=== PATIENT | female | born 1970 | race Caucasian/White ===

== ENCOUNTER 2016-09-30 07:24 | Emergency (ER) | payer MEDICAID ==
[2016-09-30] MEDS ORDERED: ONDANSETRON 4 MG/2 ML VIAL IVP STA (07:49)
[2016-09-30] MEDS ORDERED: SODIUM CHLORIDE 0.9% 1,000 ML IV ONE (07:49)
[2016-09-30] MEDS ORDERED: HYDROmorphone 1 MG/ML SYRINGE IVP STA (07:49)
[2016-09-30] MEDS ORDERED: HYDROmorphone 1 MG/ML SYRINGE ONE (07:51)
[2016-09-30] MEDS ORDERED: ONDANSETRON 4 MG/2 ML VIAL ONE (07:51)
[2016-09-30] MEDS ORDERED: KETOROLAC 60 MG/2 ML VIAL IVP STA (08:19)
[2016-09-30] MEDS ORDERED: KETOROLAC 30 MG/ML VIAL ONE (08:39)
[2016-09-30] MEDS ORDERED: cefTRIAXone 1 GM in SODIUM CHLORIDE 0.9% MINIBAG 100 ML IV STA (09:07)
[2016-09-30] MEDS ORDERED: cefTRIAXone 1 GM VIAL ONE (09:10)
[2016-09-30] MEDS ORDERED: metroNIDAZOLE 500 MG/100 ML 100 ML IV ONE (09:58)
[2016-09-30] MEDS ORDERED: metroNIDAZOLE 500 MG/100 ML 100 ML ONE (10:19)
[2016-09-30] MEDS ORDERED: ACETAMINOPHEN 1,000 MG/100 ML 100 ML IV STA (11:15)
[2016-09-30] MEDS ORDERED: ACETAMINOPHEN 1,000 MG/100 ML 100 ML IV ONE (11:22)
== END 2016-09-30 12:01 | disposition home or self-care (01) ==
DX: K57.32 Diverticulitis of large intestine without perforation or abscess without bleeding (principal); K21.9 Gastro-esophageal reflux disease without esophagitis; Z87.442 Personal history of urinary calculi
CPT/HCPCS: 36415; 74176; 80053; 81001; 83690; 85025; 96374; 96375; 99283; 99284; J0131; J1170

== ENCOUNTER 2018-01-08 12:08 | Outpatient (CLI) | payer MEDICAID ==
--- NOTE | 2018-01-08 12:35 | XRAY Report ---
Procedure Date: 01/08/2018 Accession Number: [id number] / [id number] Procedure: XRN - Cervical Spine 2 View CPT Code: FULL RESULT: EXAM: Cervical Spine 2 View DATE: 01/08/2018 12:26 PM CLINICAL HISTORY: cervicalgia COMPARISON: None. TECHNIQUE: 3 views. FINDINGS: Alignment: Normal. No spondylolisthesis or scoliosis. Bones: The cervical vertebral bodies and posterior elements are well visualized from the skull base through C7-T1. No fractures or bone lesions. Disks: Normal. Disk heights are maintained. Facets: No degenerative disease. Soft Tissues: Normal. No prevertebral soft tissue swelling. The visualized lung apices are clear. IMPRESSION: Normal cervical spine radiography. [facility]
== END 2018-01-08 12:09 | disposition home or self-care (01) ==
LOC: DI.N 12:08
PROVIDERS: ATTEND Nurse Practitioner
DX: M54.2 Cervicalgia (principal); N62 Hypertrophy of breast
CPT/HCPCS: 72040

== ENCOUNTER 2018-02-02 21:32 | Emergency (ER) | payer MEDICAID ==
[2018-02-02 22:21] LABS: BILIRUBIN,URINE NEGATIVE (NEGATIVE); GLUCOSE, URINE (UA) NEGATIVE (NEGATIVE); KETONES,URINE (UA) NEGATIVE (NEGATIVE); LEUKOCYTE ESTERASE, URINE TRACE (NEGATIVE); NITRITE,URINE NEGATIVE (NEGATIVE); OCCULT BLOOD,URINE TRACE-INTA (NEGATIVE); PROTEIN,URINE 100 mg/dL (NEGATIVE); UROBILINOGEN,URINE 0.2 (NORMAL) E.U./dL (NORMAL)
[2018-02-02 22:21] LABS: BASOPHILS % (AUTO) 0.7 %; EOSINOPHILS # (AUTO) 0.1 10^3/uL (0.0-0.7); EOSINOPHILS % (AUTO) 2.1 %; HGB - HEMOGLOBIN 13.7 g/dL (12.0-16.0); LYMPHOCYTES # (AUTO) 2.1 10^3/uL (1.5-3.5); LYMPHOCYTES % (AUTO) 31.6 %; MEAN CORPUSCULAR HGB CONC 35.1 g/dL (32.0-36.0); MEAN CORPUSCULAR VOLUME 93.9 fL (81.0-99.0); MONOCYTES # (AUTO) 0.4 10^3/uL (0.0-1.0); MONOCYTES % (AUTO) 6.8 %; NEUTROPHILS # (AUTO) 3.9 10^3/uL (1.5-6.6); NEUTROPHILS % (AUTO) 58.8 %; PLT - PLATELET COUNT 179 10^3/uL (130-450); RED BLOOD COUNT 4.15 10^6/uL (4.20-5.40); RED CELL DISTRIBUTION WIDTH 13.9 % (12.0-15.0); WHITE BLOOD COUNT 6.6 x10^3/uL (4.8-10.8)
[2018-02-02 22:22] LABS: CLARITY,URINE CLEAR (CLEAR)
[2018-02-02 22:32] LABS: BACTERIA,URINE Moderate /HPF (None Seen); RBC,URINE 0-5 /HPF (0-5); SQUAMOUS EPITHELIAL CELL,UR MANY Squamous (<= Few)
[2018-02-02 22:33] LABS: MUCUS,URINE Moderate Strands
[2018-02-02 22:37] LABS: ALBUMIN 4.8 g/dL (3.2-5.5); ALBUMIN/GLOBULIN RATIO 1.7 (1.0-2.2); BILIRUBIN,TOTAL 1.6 mg/dL (0.2-1.0); CALCIUM 9.4 mg/dL (8.5-10.3); CREATININE 0.7 mg/dL (0.4-1.0); TOTAL PROTEIN 7.6 g/dL (6.7-8.2)
[2018-02-02] MEDS ORDERED: IOPAMIDOL-300 100 ML VIAL ONE (22:41)
[2018-02-02] MEDS ORDERED: IOPAMIDOL-300 100 ML VIAL IVP ONE (22:59)
--- NOTE | 2018-02-02 23:19 | CT Report ---
Reason: hx of diverticulitis, with llq pain Procedure Date: 02/02/2018 Accession Number: [id number] / [id number] Procedure: CT - Abdomen/Pelvis W/ CPT Code: FULL RESULT: EXAM: CT ABDOMEN AND PELVIS EXAM DATE: 02/02/2018 11:00 PM. CLINICAL HISTORY: Left lower quadrant pain COMPARISONS: ABDOMEN/PELVIS W/O 09/30/2016 8:33 AM. TECHNIQUE: Routine helical CT imaging was performed through the abdomen and pelvis. IV contrast: ISOVUE 300 100mL. Enteric contrast: No. Reconstructions: Coronal and sagittal. In accordance with CT protocol optimization, one or more of the following dose reduction techniques were utilized for this exam: automated exposure control, adjustment of mA and/or KV based on patient size, or use of iterative reconstructive technique. FINDINGS: Lung Bases: Unremarkable. Liver: Diffuse fatty infiltration. No focal lesion. Gallbladder/Bile Ducts: Changes of cholecystectomy. No biliary dilatation. Spleen: Normal. Pancreas: Normal. Adrenal Glands: Normal. Kidneys: Normal. No masses or hydronephrosis. Peritoneal Cavity/Bowel: There is mild inflammation around the junction between the descending and sigmoid colon, with diverticula present, compatible with uncomplicated diverticulitis. No small bowel dilatation, free gas, or free fluid. No abscess or perforation. The appendix is well visualized and normal. Pelvic Organs: Postoperative changes of hysterectomy. No pelvic adenopathy or free fluid. Vasculature: No aneurysms or other significant abnormality. Bones: No significant abnormality. Other: None. IMPRESSION: Mild uncomplicated diverticulitis. [facility]
[2018-02-02] MEDS ORDERED: CIPROFLOXACIN 250 MG TABLET PO STA (23:23)
[2018-02-02] MEDS ORDERED: metroNIDAZOLE 250 MG TABLET PO STA (23:23)
[2018-02-02 23:37] VITALS: BP 155/100
--- NOTE | 2018-02-02 23:39 | ED Physician Documentation ---
PD HPI ABD PAIN - Stated complaint Stated Complaint: LLQ PX/SENT BY DOC - Chief complaint Chief Complaint: Abd Pain - History obtained from History obtained from: Patient, Family - History of Present Illness Timing - onset: Yesterday Timing - details: Gradual onset, Still present Quality: Aching, Dull Location: LLQ Associated symptoms: No: Fever, Nausea, Vomiting, Diarrhea Similar symptoms before: Work up / diagnostics, Treatment Recently seen: Not recently seen - Additional information Additional information: Patient is a 47 year old female presenting to the emergency department for left lower abdominal pain. patient states that she had diverticulitis in the past and it was complicated and her bowels almost ruptured so she called her doctor who told her to come in to get checked out before things got bad. Review of Systems Ten Systems: 10 systems reviewed and negative Constitutional: denies: Fever, Chills GI: reports: Abdominal Pain, Diarrhea. 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, 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 - Present Medications Home Medications: Ambulatory Orders Medication Instructions Recorded Confirmed Cholecalciferol (Vitamin D3) 5,000 unit PO DAILY 08/20/13 09/30/16 [Vitamin D-3] Meloxicam 15 mg PO DAILY 08/20/13 09/30/16 Omeprazole [PriLOSEC] 20 mg PO DAILY 08/20/13 09/30/16 traMADol [Ultram] 2 tab PO Q8HR PRN 08/20/13 09/30/16 Methotrexate 12.5 mg PO BID 10/26/13 09/30/16 Cephalexin [Keflex] 1,000 mg PO BID #24 capsule 09/30/16 Folic Acid 1 mg PO DAILY 09/30/16 09/30/16 Hydrocodone/Acetaminophen [[place] 1 each PO Q6H PRN #20 tablet 09/30/16 5-325 Tablet] Metronidazole [Flagyl] 500 mg PO BID #14 tablet 09/30/16 Ondansetron Odt [Zofran] 4 mg TL Q6H PRN #15 tablet 09/30/16 azaTHIOprine [Azathioprine] 100 mg PO DAILY 09/30/16 09/30/16 Amox/Clav 875/125 [Augmentin] 1 each PO Q8HR #42 tablet 02/02/18 - Allergies Allergies/Adverse Reactions: Allergies Allergy/AdvReac Type Severity Reaction Status Date / Time Penicillins Allergy Intermediate Rash Verified 02/02/18 21:56 - Social History Does the pt smoke?: No Smoking Status: Never smoker Does the pt drink ETOH?: No Does the pt have substance abuse?: No - Immunizations Immunizations are current?: Yes - POLST Patient has POLST: No PD ED PE NORMAL - Vitals Vital signs reviewed: Yes - General General: Alert and oriented X 3, No acute distress - HEENT HEENT: Atraumatic - Cardiac Cardiac: RRR - Respiratory Respiratory: No respiratory distress - Abdomen Abdomen: Soft - Derm Derm: Normal color, Warm and dry - Extremities Extremities: No deformity - Neuro Neuro: Alert and oriented X 3, No motor deficit, Normal speech Eye Opening: Spontaneous PD ED PE EXPANDED - Abdomen Abdomen: Tender to palpation, LLQ. No: Rebound, Guarding Results - Vitals Vitals: Vital Signs - 24 hr 02/02/18 02/02/18 21:51 23:34 Temperature 36.7 C Heart Rate 70 77 Respiratory 17 14 Rate Blood Pressure 155/101 H 155/100 H O2 Saturation 96 100 Oxygen O2 Source Room air - Labs Labs: Laboratory Tests 02/02/18 02/02/18 02/02/18 22:16 22:16 22:18 WBC 6.6 RBC 4.15 L Hgb 13.7 Hct 38.9 MCV 93.9 MCH 33.0 H MCHC 35.1 RDW 13.9 Plt Count 179 MPV 7.0 L Neut # (Auto) 3.9 Lymph # (Auto) 2.1 [place] # (Auto) 0.4 Eos # (Auto) 0.1 Baso # (Auto) 0.0 Absolute Nucleated RBC 0.00 Nucleated RBC % 0.0 Sodium 139 Potassium 3.6 Chloride 105 Carbon Dioxide 25 Anion Gap 9.0 BUN 17 Creatinine 0.7 Estimated GFR (MDRD) 90 Glucose 95 Calcium 9.4 Total Bilirubin 1.6 H AST 33 ALT 32 Alkaline Phosphatase 76 Total Protein 7.6 Albumin 4.8 Globulin 2.8 Albumin/Globulin Ratio 1.7 Lipase 30 Urine Color YELLOW Urine Clarity CLEAR Urine pH 6.0 Ur Specific [place] >=1.030 H Urine Protein 100 H Urine Glucose (UA) NEGATIVE Urine Ketones NEGATIVE Urine Occult Blood TRACE-INTA Urine Nitrite NEGATIVE Urine Bilirubin NEGATIVE Urine Urobilinogen 0.2 (NORMAL) Ur Leukocyte Esterase TRACE H Urine RBC 0-5 Urine WBC 6-10 H Ur Squamous Epith Cells MANY Squamous H Urine Bacteria Moderate H Urine Mucus Moderate Strands Ur Microscopic Review INDICATED Urine Culture Comments NOT INDICATED - Rads (name of study) ct abd pelvis Radiology: Final report received (uncomplicated diverticulitis) PD MEDICAL DECISION MAKING - ED course Complexity details: reviewed old records, reviewed results, re-evaluated patient , considered differential, d/w patient ED course: Patient was seen and examined at bedside. IV access was gained and labs were drawn. imaging was ordered. when patient returned from imaging the results were reviewed. patient was found to have uncomplicated diverticulitis. patient was treated with cipro and flagly. Patient required no further work up and was stable for discharge with outpatient follow up. - Sepsis Event Vital Signs: Vital Signs - 24 hr 02/02/18 02/02/18 21:51 23:34 Temperature 36.7 C Heart Rate 70 77 Respiratory 17 14 Rate Blood Pressure 155/101 H 155/100 H O2 Saturation 96 100 Oxygen O2 Source Room air Departure - Departure Disposition: 01 Home, Self Care Clinical Impression: Diverticulitis Condition: Good Instructions: ED Diverticulitis Follow-Up: Torie Ferrer DNP [Primary Care Provider] - Prescriptions: Amox/Clav 875/125 [Augmentin] 1 each PO Q8HR #42 tablet Comments: Your symptoms today are being caused by diverticulitis. You are being started on antibiotics and will need to be on them for the next two weeks. you should start on a clear liquid diet and slowly progress. You should take the antibiotics with yogurt or probioitcs (kombucha) You should follow up with your doctor with the next few days for re-evaluation. You may return ot the emergency department at any time for new, worsening or uncontrollable symptoms. Forms: Activity restrictions Discharge Date/Time: 02/02/18 23:40
== END 2018-02-02 23:40 | disposition home or self-care (01) ==
LOC: ED 21:32
DX: K57.92 Diverticulitis of intestine, part unspecified, without perforation or abscess without bleeding (principal)
CPT/HCPCS: 36415; 74177; 80053; 81001; 83690; 85025; 99283; 99284; A9270; Q9967; 81003; 87086

== ENCOUNTER 2018-03-12 11:16 | Day surgery (SDC) | payer MEDICAID ==
[2018-03-12] MEDS ORDERED: LACTATED RINGERS 1,000 ML IV ONE ×2 (12:11→13:50)
[2018-03-12] MEDS ORDERED: MIDAZOLAM 2 MG/2 ML VIAL IVP ONE (13:16)
[2018-03-12] MEDS ORDERED: fentaNYL 250 MCG/5 ML VIAL IVP ONE (13:16)
[2018-03-12] MEDS ORDERED: KETOROLAC 30 MG/ML VIAL ONE (14:06)
[2018-03-12] MEDS ORDERED: LISINOPRIL 5 MG TABLET PO ONE (15:00)
[2018-03-12 15:01] VITALS: BP 128/69
== END 2018-03-12 11:17 | disposition home or self-care (01) ==
LOC: SDS 11:16
PROVIDERS: ATTEND Internal Medicine Gastroenterology
PROC: 0DBN8ZZ Excision of Sigmoid Colon, Via Natural or Artificial Opening Endoscopic (ICD-10-PCS; principal; 2018-03-12 12:45)
DX: R93.3 Abnormal findings on diagnostic imaging of other parts of digestive tract (principal); K57.30 Diverticulosis of large intestine without perforation or abscess without bleeding; K63.5 Polyp of colon; I10 Essential (primary) hypertension; B18.2 Chronic viral hepatitis C; E66.9 Obesity, unspecified; Z68.35 Body mass index [BMI] 35.0-35.9, adult; Z80.0 Family history of malignant neoplasm of digestive organs; Z87.891 Personal history of nicotine dependence; Z79.899 Other long term (current) drug therapy
CPT/HCPCS: 45380; A9270; J7120

== ENCOUNTER 2018-03-13 11:55 | Emergency (ER) | payer MEDICAID ==
[2018-03-13 12:11] VITALS: BP 170/97
[2018-03-13] MEDS ORDERED: LIDOCAINE 2%-EPI 1:100000 20 ML MDV SUBQ STA (13:15)
--- NOTE | 2018-03-13 13:22 | ED Physician Documentation ---
PD HPI WOUND RECHECK - Stated complaint Stated Complaint: BUMP ON LEFT ARM - Chief complaint Chief Complaint: Wound - Histroy obtained from History obtained from: Patient, Family - History of Present Illness Location: Left Uppper Extremity (axilla) Timing - onset: How many days ago (3) Pain level max: 5 Pain level now: 5 Associated symptoms: Redness, Swelling, Drainage. No: Fever Similar symptoms before: Diagnosis (abscess) Recently seen: Clinic (drained in clinic 2 days ago, continued pain today.) Review of Systems Constitutional: denies: Fever, Chills GI: denies: Vomiting : denies: Now EGA Musculoskeletal: denies: Neck pain, Back pain Neurologic: denies: Headache 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, 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, Oophrectomy - Present Medications Home Medications: Ambulatory Orders Medication Instructions Recorded Confirmed Cholecalciferol (Vitamin D3) 5,000 unit PO DAILY 08/20/13 03/12/18 [Vitamin D-3] Meloxicam 15 mg PO DAILY 08/20/13 03/12/18 Omeprazole [PriLOSEC] 20 mg PO DAILY 08/20/13 03/12/18 traMADol [Ultram] 2 tab PO Q8HR PRN 08/20/13 03/12/18 Methotrexate 10 mg PO BID 10/26/13 03/12/18 Folic Acid 1 mg PO DAILY 09/30/16 03/12/18 Ondansetron Odt [Zofran] 4 mg TL Q6H PRN #15 tablet 09/30/16 03/12/18 azaTHIOprine [Azathioprine] 100 mg PO DAILY 09/30/16 03/12/18 Lisinopril 10 mg PO DAILY 03/12/18 03/12/18 Clindamycin HCl [Clindamycin 300MG 300 mg PO Q6H #28 capsule 03/13/18 CAP] - Allergies Allergies/Adverse Reactions: Allergies Allergy/AdvReac Type Severity Reaction Status Date / Time Penicillins Allergy Intermediate Rash Verified 02/02/18 21:56 - Social History Does the pt smoke?: No Smoking Status: Never smoker Does the pt drink ETOH?: No Does the pt have substance abuse?: No - Immunizations Immunizations are current?: Yes - POLST Patient has POLST: No PD ED PE NORMAL - Vitals Vital signs reviewed: Yes - General General: Alert and oriented X 3, No acute distress - HEENT HEENT: Moist mucous membranes - Neck Neck: Supple, no meningeal sign - Cardiac Cardiac: RRR - Respiratory Respiratory: No respiratory distress, Clear bilaterally - Derm Derm: Warm and dry - Extremities Extremities: Other (L axilla - 10x8 cm erythema, 2x2cm induration, fluctuance. ) - Neuro Neuro: Alert and oriented X 3 Results - Vitals Vitals: Vital Signs - 24 hr 03/13/18 12:09 Temperature 36.5 C Heart Rate 76 Respiratory 16 Rate Blood Pressure 170/97 H O2 Saturation 99 Oxygen O2 Source Room air Procedures - Abscess I&D (location) Left axilla Preparation: Chlorhexadine, Lidocaine 2 %, With epi Incision: Incised with scalpel, Purulent drainage, Packed Other: Pt tolerated well, Dressing applied, Antibiotic prescribed PD MEDICAL DECISION MAKING - ED course Complexity details: considered differential, d/w patient, d/w family ED course: Patient is a 47-year-old female with a left axilla abscess and cellulitis. It was incised and drained. Tolerated well. Packing placed. Will place on antibiotics for home. She is well-appearing, nontoxic. Afebrile. No evidence of necrotizing soft tissue infection. Patient counseled regarding signs and symptoms for which I believe and urgent re-evaluation would be necessary. Patient with good understanding of and agreement to plan and is comfortable going home at this time This document was made in part using voice recognition software. While efforts are made to proofread this document, sound alike and grammatical errors may occur. - Sepsis Event Vital Signs: Vital Signs - 24 hr 03/13/18 12:09 Temperature 36.5 C Heart Rate 76 Respiratory 16 Rate Blood Pressure 170/97 H O2 Saturation 99 Oxygen O2 Source Room air Departure - Departure Disposition: 01 Home, Self Care Clinical Impression: Abscess Condition: Good Instructions: ED Abscess IandD Follow-Up: Torie Ferrer DNP [Primary Care Provider] - Within 3 Days (for wound check) Prescriptions: Clindamycin HCl [Clindamycin 300MG CAP] 300 mg PO Q6H #28 capsule Comments: Take all antibiotics until gone. Return if you worsen. This should improve over the next few days. Discharge Date/Time: 03/13/18 13:55
[2018-03-13] MEDS ORDERED: CLINDAMYCIN 150 MG CAPSULE PO STA (13:35)
== END 2018-03-13 13:55 | disposition home or self-care (01) ==
LOC: ED 11:55
DX: L02.412 Cutaneous abscess of left axilla (principal); I10 Essential (primary) hypertension
CPT/HCPCS: 10060; 99283; A9270

== ENCOUNTER 2018-03-15 08:15 | Emergency (ER) | payer MEDICAID ==
[2018-03-15 08:24] VITALS: BP 157/98
--- NOTE | 2018-03-15 08:41 | ED Physician Documentation ---
PD HPI WOUND RECHECK - Stated complaint Stated Complaint: LEFT ARM BUMP - Chief complaint Chief Complaint: Wound - Histroy obtained from History obtained from: Patient, Family - History of Present Illness Location: Left Uppper Extremity Timing - onset: How many weeks ago (1) Associated symptoms: Redness, Drainage Similar symptoms before: Diagnosis (abscess) Recently seen: Clinic, Emergency Dept - Additional information Additional information: 47-year-old female had an abscess incised and drained 1 week ago in the clinic and had to have a re-incision and drainage done 2 days ago and at that time she was placed on some clindamycin. She has had a marked decrease in the redness associated with the area of the abscess and the incision and she has had a reduction in the drainage as well. She does have some redness that appears to extend past the margins that were marked 2 days ago and this is disjointed from the area of the abscess. He does not have any specific pain or swelling to the area. Review of Systems Constitutional: denies: Fever Eyes: denies: Decreased vision Ears: denies: Ear pain Nose: denies: Congestion Throat: denies: Sore throat Respiratory: denies: Cough GI: denies: Vomiting Skin: reports: Other (abscess left axilla) Musculoskeletal: reports: Extremity pain Neurologic: denies: Generalized weakness, Focal weakness, Numbness PD PAST MEDICAL HISTORY - Past Medical History Cardiovascular: Hypertension Respiratory: None Endocrine/Autoimmune: Other GI: GERD, Diverticulitis : None HEENT: None Psych: None Musculoskeletal: Osteoarthritis Derm: None - Past Surgical History Past Surgical History: Yes 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, 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, Oophrectomy - Present Medications Home Medications: Ambulatory Orders Medication Instructions Recorded Confirmed Cholecalciferol (Vitamin D3) 5,000 unit PO DAILY 08/20/13 03/12/18 [Vitamin D-3] Meloxicam 15 mg PO DAILY 08/20/13 03/12/18 Omeprazole [PriLOSEC] 20 mg PO DAILY 08/20/13 03/12/18 traMADol [Ultram] 2 tab PO Q8HR PRN 08/20/13 03/12/18 Methotrexate 10 mg PO BID 10/26/13 03/12/18 Folic Acid 1 mg PO DAILY 09/30/16 03/12/18 Ondansetron Odt [Zofran] 4 mg TL Q6H PRN #15 tablet 09/30/16 03/12/18 azaTHIOprine [Azathioprine] 100 mg PO DAILY 09/30/16 03/12/18 Lisinopril 10 mg PO DAILY 03/12/18 03/12/18 Clindamycin HCl [Clindamycin 300MG 300 mg PO Q6H #28 capsule 03/13/18 CAP] - Allergies Allergies/Adverse Reactions: Allergies Allergy/AdvReac Type Severity Reaction Status Date / Time Penicillins Allergy Intermediate Rash Verified 02/02/18 21:56 - Social History Does the pt smoke?: No Smoking Status: Never smoker Does the pt drink ETOH?: No Does the pt have substance abuse?: No - Immunizations Immunizations are current?: Yes - POLST Patient has POLST: No PD ED PE NORMAL - Vitals Vital signs reviewed: Yes (hypertensive ) - General General: Alert and oriented X 3, No acute distress, Well developed/nourished - HEENT HEENT: Atraumatic, PERRL, EOMI - Neck Neck: Supple, no meningeal sign - Respiratory Respiratory: No respiratory distress - Derm Derm: Normal color, Warm and dry - Extremities Extremities: No deformity, No edema, Other (There is an area in the left axilla with packing present with minimal drainage. There is no surrounding erythema and the mass present is firm and non-tender. There is a line drawn with a surgical marker and the redenss has receded from this and is gone at the abscess site. There is new redness that is superficial without swelling and is non-blanching. distal n/v is intact. ) - Neuro Neuro: Alert and oriented X 3, shape carver 2-12 intact, No motor deficit, No sensory deficit, Normal speech Eye Opening: Spontaneous Motor: Obeys Commands Verbal: Oriented GCS Score: 15 - Psych Psych: Normal mood, Normal affect Results - Vitals Vitals: Vital Signs - 24 hr 03/15/18 08:20 Temperature 36.0 C L Heart Rate 79 Respiratory 16 Rate Blood Pressure 157/98 H O2 Saturation 99 Oxygen O2 Source Room air PD MEDICAL DECISION MAKING - ED course Complexity details: reviewed old records, considered differential, d/w patient, d/w family ED course: 47 y/o female with a resolving abscess and some redness that appears benign. a portion of the packing is cut and the patient is instructed to remove the remainder in the next day. 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 - Sepsis Event Vital Signs: Vital Signs - 24 hr 03/15/18 08:20 Temperature 36.0 C L Heart Rate 79 Respiratory 16 Rate Blood Pressure 157/98 H O2 Saturation 99 Oxygen O2 Source Room air Departure - Departure Disposition: 01 Home, Self Care Clinical Impression: Abscess Condition: Stable Instructions: ED Abscess IandD Follow-Up: Torie Ferrer DNP [Primary Care Provider] - Forms: Activity restrictions
== END 2018-03-15 08:49 | disposition home or self-care (01) ==
LOC: ED 08:15
DX: L02.412 Cutaneous abscess of left axilla (principal); I10 Essential (primary) hypertension
CPT/HCPCS: 99283

== ENCOUNTER 2018-05-05 09:38 | Outpatient (CLI) | payer MEDICAID | END 2018-05-05 09:39 | disposition home or self-care (01) | LOC: SC 09:38 | PROVIDERS: ATTEND Internal Medicine Pulmonary Disease | DX: R06.81 Apnea, not elsewhere classified (principal); G47.10 Hypersomnia, unspecified; R06.83 Snoring; G47.8 Other sleep disorders; R41.89 Other symptoms and signs involving cognitive functions and awareness; R51 Headache | CPT/HCPCS: 99203; 99212 ==

== ENCOUNTER 2018-06-24 20:42 | Outpatient (CLI) | payer MEDICAID | END 2018-06-24 20:43 | disposition home or self-care (01) | LOC: SC 20:42 | PROVIDERS: ATTEND Internal Medicine Pulmonary Disease | DX: G47.33 Obstructive sleep apnea (adult) (pediatric) (principal) | CPT/HCPCS: 95810 ==

== ENCOUNTER 2018-07-15 12:47 | Outpatient (CLI) | payer MEDICAID | END 2018-07-15 12:48 | disposition home or self-care (01) | LOC: SC 12:47 | PROVIDERS: ATTEND Nurse Practitioner Family | DX: G47.33 Obstructive sleep apnea (adult) (pediatric) (principal); I10 Essential (primary) hypertension | CPT/HCPCS: 99212; 99214; 99215 ==

== ENCOUNTER 2018-09-16 13:31 | Outpatient (CLI) | payer MEDICAID | END 2018-09-16 13:32 | disposition home or self-care (01) | LOC: SC 13:31 | PROVIDERS: ATTEND Nurse Practitioner Family | DX: G47.33 Obstructive sleep apnea (adult) (pediatric) (principal) | CPT/HCPCS: 99212; 99214 ==

== ENCOUNTER 2018-11-04 09:43 | Emergency (ER) | payer MEDICAID ==
[2018-11-04 09:56] VITALS: BP 153/95
[2018-11-04] MEDS ORDERED: LIDOCAINE 1% 2 ML VIAL SUBQ STA (11:25)
--- NOTE | 2018-11-04 11:27 | ED Physician Documentation ---
History of Present Illness - Stated complaint Stated Complaint: BUMP UNDER ARMPIT - Chief complaint Chief Complaint: General - History obtained from History obtained from: Patient - History of Present Illness Timing: How many weeks ago (1) - Additonal information Additional information: This is a 48-year-old woman who presents with complaints that she had a lump in her left armpit for about a week now. She has a history of abscess there about 3 or 4 months ago just adjacent to it that had to be drained. This was growing in size and getting more painful. She had a low-grade temp of 100 degrees and has an autoimmune disorder. Any medications for her pain. She is allergic to penicillin it causes anaphylaxis. 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 /[employer]: Tubal ligation, 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, Oophrectomy - Present Medications Home Medications: Ambulatory Orders Medication Instructions Recorded Confirmed Cholecalciferol (Vitamin D3) 5,000 unit PO DAILY 08/20/13 03/12/18 [Vitamin D-3] RX: Meloxicam 15 mg PO DAILY 08/20/13 03/12/18 RX: Omeprazole [PriLOSEC] 20 mg PO DAILY 08/20/13 03/12/18 traMADol [Ultram] 2 tab PO Q8HR PRN 08/20/13 03/12/18 RX: Methotrexate 10 mg PO BID 10/26/13 03/12/18 Ondansetron Odt [Zofran] 4 mg TL Q6H PRN #15 tablet 09/30/16 03/12/18 RX: Folic Acid 1 mg PO DAILY 09/30/16 03/12/18 RX: azaTHIOprine [Azathioprine] 100 mg PO DAILY 09/30/16 03/12/18 RX: Lisinopril 10 mg PO DAILY 03/12/18 03/12/18 RX: Clindamycin HCl [Clindamycin 300 mg PO Q6H #28 capsule 03/13/18 300MG CAP] Hydrocodone/Acetaminophen 1 - 2 each PO Q6H PRN #10 tablet 11/04/18 [Hydrocodon-Acetaminophen 5-325] Sulfamethox/Trimeth 800/160 1 each PO BID #14 tablet 11/04/18 [Bactrim Ds 800/160] - Allergies Allergies/Adverse Reactions: Allergies Allergy/AdvReac Type Severity Reaction Status Date / Time Penicillins Allergy Intermediate Rash Verified 11/04/18 09:56 - Social History Does the pt smoke?: No Smoking Status: Never smoker Does the pt drink ETOH?: No Does the pt have substance abuse?: No - Immunizations Immunizations are current?: Yes - POLST Patient has POLST: No Results - Vitals Vitals: Vital Signs - 24 hr 11/04/18 09:53 Temperature 36.2 C L Heart Rate 69 Respiratory 14 Rate Blood Pressure 153/95 H O2 Saturation 98 Oxygen O2 Source Room air - Labs Labs: Microbiology 11/04/18 13:04 Wound Culture - Preliminary Abscess Procedures - Abscess I&D (location) axilla Preparation: Chlorhexadine, Lidocaine 1% Incision: Incised with scalpel, Purulent drainage, Loculations broken, Irrigated, Packed, Culture obtained Other: Pt tolerated well, Dressing applied, Antibiotic prescribed Departure - Departure Disposition: 01 Home, Self Care Clinical Impression: Abscess Condition: Good Instructions: ED Abscess IandD Follow-Up: Mita Allen ARNP [Primary Care Provider] - Prescriptions: Hydrocodone/Acetaminophen [Hydrocodon-Acetaminophen 5-325] 1 - 2 each PO Q6H PRN #10 tablet PRN Reason: pain Sulfamethox/Trimeth 800/160 [Bactrim Ds 800/160] 1 each PO BID #14 tablet Comments: You may shower and wash this wound.Start the Bactrim tonight twice a day. There is a prescription for hydrocodone if needed for pain but do not take this and drive or operate machinery or take additional Tylenol.Packing should be removed in 2 days with your primary care provider. If you are unable to get in there you can return here and will remove the packing.Return if the redness continues to spread, you develop a fever or vomiting and cannot keep anything down. Discharge Date/Time: 11/04/18 13:43
== END 2018-11-04 13:43 | disposition home or self-care (01) ==
LOC: ED 09:43
DX: L02.412 Cutaneous abscess of left axilla (principal); I10 Essential (primary) hypertension; Z88.0 Allergy status to penicillin
CPT/HCPCS: 10060; 87070; 87181; 87205; 99281; 99283

== ENCOUNTER 2018-12-16 10:53 | Outpatient (CLI) | payer MEDICAID | END 2018-12-16 10:54 | disposition home or self-care (01) | LOC: SC 10:53 | PROVIDERS: ATTEND Nurse Practitioner Family | DX: G47.33 Obstructive sleep apnea (adult) (pediatric) (principal) | CPT/HCPCS: 99212; 99214 ==

== ENCOUNTER 2019-01-07 | Outpatient (CLI) | payer MEDICAID | END 2019-01-07 23:59 | disposition home or self-care (01) | DX: R73.9 Hyperglycemia, unspecified (principal) | CPT/HCPCS: 36415; 83036 ==

== ENCOUNTER 2019-03-31 12:38 | Emergency (ER) | payer MEDICAID ==
[2019-03-31 12:46] VITALS: BP 143/88
--- NOTE | 2019-03-31 13:29 | ED Physician Documentation ---
PD HPI OPHTHO - Stated complaint Stated Complaint: RT EYE REDNESS - Chief complaint Chief Complaint: Heent - History obtained from History obtained from: Patient - History of Present Illness Timing - onset: How many days ago (2) Timing - duration: Days (2) Timing - details: Gradual onset Pain level max: 0 Pain level now: 0 Location: Right Quality / character: Other (Redness, drainage) Associated symptoms: Redness, Tearing (Yellow), Discharge Contributing factors: No: Recent URI, FB, Chemical exposure, acid, Chemical exposure, base, Blunt trauma, Penetrating trauma, Wears glasses, Wears contacts Recently seen: Not recently seen Review of Systems Constitutional: denies: Fever, Chills Eyes: denies: Loss of vision, Decreased vision, Photophobia GI: denies: Vomiting, Diarrhea : denies: Now [facility] PD PAST MEDICAL HISTORY - Past Medical History Cardiovascular: Hypertension Respiratory: None Endocrine/Autoimmune: Other GI: GERD, Diverticulitis : None HEENT: None Psych: None Musculoskeletal: Osteoarthritis Derm: None - Past Surgical History Past Surgical History: Yes 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, 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, Oophrectomy - Present Medications Home Medications: Ambulatory Orders Medication Instructions Recorded Confirmed Cholecalciferol (Vitamin D3) 5,000 unit PO DAILY 08/20/13 03/12/18 [Vitamin D-3] Meloxicam 15 mg PO DAILY 08/20/13 03/12/18 Omeprazole [PriLOSEC] 20 mg PO DAILY 08/20/13 03/12/18 traMADol [Ultram] 2 tab PO Q8HR PRN 08/20/13 03/12/18 Methotrexate 10 mg PO BID 10/26/13 03/12/18 Folic Acid 1 mg PO DAILY 09/30/16 03/12/18 Ondansetron Odt [Zofran] 4 mg TL Q6H PRN #15 tablet 09/30/16 03/12/18 azaTHIOprine [Azathioprine] 100 mg PO DAILY 09/30/16 03/12/18 Lisinopril 10 mg PO DAILY 03/12/18 03/12/18 Clindamycin HCl [Clindamycin 300MG 300 mg PO Q6H #28 capsule 03/13/18 CAP] Hydrocodone/Acetaminophen 1 - 2 each PO Q6H PRN #10 tablet 11/04/18 [Hydrocodon-Acetaminophen 5-325] Sulfamethox/Trimeth 800/160 1 each PO BID #14 tablet 11/04/18 [Bactrim Ds 800/160] Polymyxin B/Trimeth Ophth Drop 1 drops RIGHTEYE Q3H 7 Days #1 03/31/19 [Polytrim Ophth Drops] bottle - Allergies Allergies/Adverse Reactions: Allergies Allergy/AdvReac Type Severity Reaction Status Date / Time Penicillins Allergy Intermediate Rash Verified 03/31/19 12:43 - Social History Does the pt smoke?: No Smoking Status: Never smoker Does the pt drink ETOH?: No Does the pt have substance abuse?: No - Immunizations Immunizations are current?: Yes - POLST Patient has POLST: No PD ED PE NORMAL - Vitals Vital signs reviewed: Yes - General General: Alert and oriented X 3, No acute distress - HEENT HEENT: Moist mucous membranes, Other (Left eye is normal. Right eye is injected with yellow drainage.) - Neck Neck: Supple, no meningeal sign - Cardiac Cardiac: RRR - Respiratory Respiratory: No respiratory distress, Clear bilaterally - Derm Derm: Warm and dry - Neuro Neuro: Alert and oriented X 3 Results - Vitals Vitals: Vital Signs - 24 hr 03/31/19 12:43 Temperature 36.8 C Heart Rate 64 Respiratory 16 Rate Blood Pressure 143/88 H O2 Saturation 100 Oxygen O2 Source Room air PD MEDICAL DECISION MAKING - ED course Complexity details: considered differential, d/w patient ED course: Patient with bacterial conjunctivitis of the right eye. Will place on Polytrim ophthalmic. She does not use contacts at home. No evidence of corneal ulcer. Patient counseled regarding signs and symptoms for which I believe and urgent re-evaluation would be necessary. Patient with good understanding of and agreement to plan and is comfortable going home at this time This document was made in part using voice recognition software. While efforts are made to proofread this document, sound alike and grammatical errors may occur. Departure - Departure Disposition: 01 Home, Self Care Clinical Impression: Conjunctivitis, right eye Qualifiers: Conjunctivitis type: acute Acute conjunctivitis type: bacterial Qualified Code(s): H10.31 - Unspecified acute conjunctivitis, right eye Condition: Good Instructions: ED Conjunctivitis Bacterial Follow-Up: Mita Allen ARNP [Primary Care Provider] - Within 1 week Prescriptions: Polymyxin B/Trimeth Ophth Drop [Polytrim Ophth Drops] 1 drops RIGHTEYE Q3H 7 Days #1 bottle Comments: Use antibiotic drops as prescribed. Return if you worsen. Follow-up with your doctor if not improving. Discharge Date/Time: 03/31/19 13:31
== END 2019-03-31 13:31 | disposition home or self-care (01) ==
LOC: ED 12:38
DX: H10.31 Unspecified acute conjunctivitis, right eye (principal); I10 Essential (primary) hypertension
CPT/HCPCS: 99282; 99284

== ENCOUNTER 2019-06-30 10:00 | Outpatient (CLI) | payer MEDICAID ==
--- NOTE | 2019-06-30 11:41 | SLEEP CARE CONSULTATION ---
Information from patient questionnaire entered by Leilani Pollard. I have reviewed and concur with the information entered by Leilani Pollard. This document represents the service I personally performed and the decisions made by me, Griselda Eduardo, RN, MSN, [employer]. History of Present Illness Previous diagnosis: Severe, Obstructive Sleep Apnea-Hypopnea Syndrome AHI: 46.2 Reason for follow up: six month Equipment type: CPAP Equipment obtained from: [facility] Mask style: Nasal (wisp) Mask brand: Respironics Backup mask available: Yes Last cushion change: 3 weeks ago HPI additional information: Patient more comfortable with Wisp mask given. However,it was hard to get replacement supplies from [facility] despite my mask specific prescription. She got 2 of the wrong styles of replacement before [facility] staff came out to clarify mask type needed. It still took time to get mask after another phone call. NO problems since CPAP Compliance Data - Data Reviewed with Patient Average duration of nightly device use: 8.1 Compliance rate %: 100 (180 days) Current pressure setting (cmH2O): 12-16 Humidity settin Heated hose settin Average residual AHI: 0.6 Average large leak: 1 min 37 sec Subjective Patient concerns: reports: aerophagia (waking to burping 1-2 times a week), other (waking to need for more air a couple times a month. She just started a muscle relaxant ). 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 [employer]) Allergies and Home Medications Known drug allergies: Yes (penicilling) Home medication list reviewed: Yes (blood pressure medication reduced gabapentin replaced with methocarbin, ) Allergy and home medication list: lisinopril 10mg daily - to use 1/2 tablet azathioprine 100mg daily tramadol 2 tab po every 8 hour prn [id number] po daily methotrexate 10mg twice daily meloxicam 15mg dialy folic acid 1mg daily clindamycin 300mg every 6 hour daily vitamin D3 5000 units daily Review of Systems Review of systems same as previous: No (diagnosed with fibromyalgia ) Physical Exam Blood Pressure: 114/80 Cuff size: regular Heart Rate: 62 O2 Saturation: 98 Height: 5 ft 2 in Weight: 177 lb 9.6 oz Body Mass Index: 32.5 BMI Classification: Obesity Class 1 Impression and Plan 1. Obstructive Sleep Apnea-Hypopnea Syndrome, severe, with good treatment compliance and good apnea control. On CPAP therapy, the patient has better sleep quality and is more rested overall. To reduce aerophagia, I will adjust her autoCPAP pressure to [id number]. She is to notify me if the symptoms persist. As for air hunger a couple times, it appears it was when she took her new muscle relaxant before bedtime. So advised to not take this before bed with rationale. If air hunger continues, she is to contact me and to think about what was different in her routine. As for her intermittent dizziness, she is to follow her PCP instructions of halving the lisinopril dose. Evidently it was hard for her to cut pill in half. Thus I informed her she could buy a pill cutter for ease of procedure. She is to contact her provider if continued symptoms and continue to monitor her blood pressure. As for increase in recent fatigue, it appears she has been staying up late to make baby blanket. Thus discussed importance of sufficient sleep. Since she is planning on losing about 10 more pounds, I again reviewed symptoms to report for additional pressure change with rationale discussed. Patient's apnea severity and rationale for treatment to reduce apnea, improve sleep quality and reduce cardiovascular and cerebrovascular events was reviewed. I also reviewed the benefit of consistent device use of CPAP for hypertension, gastric reflux. Since apnea is more severe supine, she is advised to avoid supine sleep and elevate head if unable to use CPAP to reduce apnea risk. * * Change CPAP pressure to 12-14 cmH2O * Stop muscle relaxant before bedtime * obtain more sleep * Implement instructions by PCP for lisinopril and contact if continued symptoms * Notify me if snoring with mask or feeling that the pressure is too much or too little * Continue to lose weight * Call this office if any problems using CPAP * Return for follow up in 1 year , or sooner if concerns arise Time Spent with Patient (minutes): 34 I spent 100% of this visit face to face with the patient with greater than 50% of this was spent time counseling the patient and coordination of care.
[2019-06-30 11:42] VITALS: BP 114/80
== END 2019-06-30 10:01 | disposition home or self-care (01) ==
LOC: SC 10:00
PROVIDERS: ATTEND Nurse Practitioner Family
DX: G47.33 Obstructive sleep apnea (adult) (pediatric) (principal); E66.9 Obesity, unspecified; Z68.32 Body mass index [BMI] 32.0-32.9, adult
CPT/HCPCS: 99212; 99214

== ENCOUNTER 2019-07-22 09:50 | Outpatient (CLI) | payer MEDICAID ==
[2019-07-22 12:49] LABS: HEMOGLOBIN A1C 0.42 g/dL; HEMOGLOBIN A1C % 5.1 % (4.6-6.2)
== END 2019-07-22 23:59 | disposition home or self-care (01) ==
LOC: LAB.N 09:50
PROVIDERS: ATTEND Nurse Practitioner Gerontology
DX: E11.9 Type 2 diabetes mellitus without complications (principal)
CPT/HCPCS: 36415; 83036

== ENCOUNTER 2020-02-03 10:35 | Outpatient (CLI) | payer MEDICAID ==
--- NOTE | 2020-02-03 11:43 | SLEEP CARE CONSULTATION ---
Information from patient questionnaire entered by Leilani Pollard. I have reviewed and concur with the information entered by Leilani Pollard. This document represents the service I personally performed and the decisions made by me, Sariah Davis ARNP. History of Present Illness Service Date and Time: 02/03/2020 1035 Previous diagnosis: Severe, Obstructive Sleep Apnea-Hypopnea Syndrome AHI: 46.2 (in 2019) Reason for follow up: other (8 month, needs pressure change) Equipment type: CPAP Equipment obtained from: Other (has not yet gotten supplies from them, insurance change, forgets name) Mask style: Nasal (Wisp) Backup mask available: Yes (old mask) Last cushion change: 4-5 months Prior sleep studies: Yes Year and Where: 2019 - [facility] Type of Sleep Study: Polysomnography HPI additional information: HERI HIDALGO was diagnosed to have severe, AHI 46.2, obstructive sleep apnea- hypopnea syndrome and returned today for CPAP therapy pressure change. She states she has gained some weight and is going to [place] for a week visit. She is concerned that her CPAP pressure is too low because she has gained weight and she is having some occasional morning dizziness. She states sometimes she does burp air in the morning but not as bad. She states her blood sugars have been elevated lately so she is not sure if the dizziness is due to the CPAP machine pressure. She would like to go back to previous pressures as she feels these would be better with her weight change and trip to [place] (more elevation). She states she has also been diagnosed with fibromyalgia since her last visit. CPAP Compliance Data - Data Reviewed with Patient Average duration of nightly device use: 8.1 Compliance rate %: 97.2 (180 days) Current pressure setting (cmH2O): 12-14 Humidity settin Heated hose settin Average residual AHI: 0.4 Average large leak: 17 sec Subjective Patient concerns: reports: aerophagia (burping a little bit in the mornings), dry mouth, nose, throat (sometimes, water helps), other (some dizziness in the morning; blood sugars are elevated). denies: mask discomfort, air blowing in eyes, mask leak noise, condensation in mask/hose, nasal congestion, epistaxis Observed to snore while using device: No Current pressure setting perceived as: too low On therapy, patient: reports: sleeping better, awakening more refreshed, being more awake and alert during the day, more rested overall. denies: drowsiness while driving Initial [place] Sleepiness Scale score: 12 (in 2018) Current [place] Sleepiness Scale score: 8 Allergies and Home Medications Drug allergies reviewed: Yes (penicillins) Home medication list reviewed: Yes (no changes) Review of Systems Review of systems same as previous: No (fibromyalgia) Physical Exam Heart Rate: 77 O2 Saturation: 97 Height: 5 ft 2 in Weight: 186 lb 9.6 oz Weight change since last visit: 9 Body Mass Index: 34.1 BMI Classification: Obese Impression and Plan 1. Obstructive Sleep Apnea-Hypopnea Syndrome, severe, with good treatment compliance and good apnea control. On CPAPtherapy, there is improved sleep quality and feels more rested overall. She has been having some aerophagia but she feels this is minor. She has recently had some condensation in the mask and she was advised to adjust the humidity setting from 3 to 2 or lower if needed. We also discussed adjusting the heated hose setting if needed until the condensation resolves. Because she has gained 9 pounds and feels the pressure is too low, I will adjust her pressure back to 12-16 cm H2O and have her follow up in 1-2 months to see how she is doing. We discussed reasons she should call if pressure feels too much or not enough or she has worsening aerophagia. She was advised to follow up with her PCP for evaluation of her elevated blood sugars and recent morning dizziness. She voiced agreement with plan of care. Patient's apnea severity and rationale for treatment to reduce apnea, improve sleep quality and reduce cardiovascular and cerebrovascular events was reviewed. I also reviewed the benefit of consistent device use of CPAPfor hypertension, diabetes and gastric reflux. Change auto CPAP pressure at 12-16 cm H2O. Notify me if snoring with the mask or feeling that the pressure is too much or too little. Follow up with PCP on elevated blood sugars and dizziness in morning. Attempt to lose weight. Adjust humidity or heated hose setting to reduce condensation in mask/hose. Return for follow-up in 1-2 months, or sooner if concerns arise. Visit Type: In Office Time Spent with Patient (minutes): 20 Provider Statement: I spent 100% of the Face to Face Visit with the patient with greater than 50% spent counseling the patient and coordination of care.
== END 2020-02-03 10:36 | disposition home or self-care (01) ==
LOC: SC 10:35
PROVIDERS: ATTEND Nurse Practitioner Family
DX: G47.33 Obstructive sleep apnea (adult) (pediatric) (principal); E66.9 Obesity, unspecified; Z68.34 Body mass index [BMI] 34.0-34.9, adult
CPT/HCPCS: 99212; 99213

== ENCOUNTER 2020-03-09 12:47 | Outpatient (CLI) | payer MEDICAID ==
--- NOTE | 2020-03-09 13:24 | SLEEP CARE CONSULTATION ---
Information from patient questionnaire entered by Cyndee Wilcox. I have reviewed and concur with the information entered by Cyndee Wilcox. This document represents the service I personally performed and the decisions made by me, Sariah Davis ARNP. History of Present Illness Service Date and Time: 03/09/2020 1247 Previous diagnosis: Severe, Obstructive Sleep Apnea-Hypopnea Syndrome AHI: 46.2 Reason for follow up: one month (followup pressure change) Equipment type: CPAP Equipment obtained from: [facility] (getting supplies as needed) Mask style: Nasal (wisp) Backup mask available: Yes (old mask) Last cushion change: 1 month Year and Where: 2018 [facility] Type of Sleep Study: Polysomnography HPI additional information: HERI HIDALGO was diagnosed to have severe, AHI 46.2, obstructive sleep apnea- hypopnea syndrome and returned today for CPAP therapy one month pressure change follow-up. CPAP Compliance Data - Data Reviewed with Patient Average duration of nightly device use: 8 h 12 min Compliance rate %: 93.3 Current pressure setting (cmH2O): 12-14 Humidity settin Heated hose settin Average residual AHI: 0.4 Average large leak: 8 sec Subjective Missed days of use due to: reports: other (power outage when on vacation) Patient concerns: reports: condensation in mask/hose (a little bit). denies: aerophagia, mask discomfort, air blowing in eyes, mask leak noise, nasal congestion, dry mouth, nose, throat, epistaxis, other Observed to snore while using device: No Current pressure setting perceived as: comfortable On therapy, patient: reports: sleeping better, awakening more refreshed, being more awake and alert during the day, more rested overall. denies: drowsiness while driving Initial [place] Sleepiness Scale score: 12 (in 2018) Current [place] Sleepiness Scale score: 9 Allergies and Home Medications Drug allergies reviewed: Yes (penicillins) Home medication list reviewed: Yes (no changes) Review of Systems Review of systems same as previous: Yes (no changes) Physical Exam Heart Rate: 66 O2 Saturation: 98 Height: 5 ft 2 in Weight: 192 lb Body Mass Index: 35.1 BMI Classification: Obese Impression and Plan 1. Obstructive Sleep Apnea-Hypopnea Syndrome, severe, with good treatment compliance and good apnea control. On CPAP therapy, the patient has better sleep quality and is more rested overall. Patient is very happy with new pressure range. She does get a little condensation in the mask. I reviewed with patient how to change the humidity or heated hose setting on her Respironics Dreamstation. I encouraged her to look in her machine's manual as well for instructions for adjusting these settings. She voiced understanding. Patient's apnea severity and rationale for treatment to reduce apnea, improve sleep quality and reduce cardiovascular and cerebrovascular events was reviewed. I also reviewed the benefit of consistent device use of CPAP for hypertension, shelby betes, and gastric reflux. * Continue auto CPAP pressure at 12-14 cmH2O * Notify me if snoring with mask or feeling that the pressure is too much or too little * Attempt to lose weight * Call this office if any problems using CPAP * Return for follow up in 1 year, or sooner if concerns arise Visit Type: In Office Time Spent with Patient (minutes): 17 Provider Statement: I spent 100% of the Face to Face Visit with the patient with greater than 50% spent counseling the patient and coordination of care.
== END 2020-03-09 12:48 | disposition home or self-care (01) ==
LOC: SC 12:47
PROVIDERS: ATTEND Nurse Practitioner Family
DX: G47.33 Obstructive sleep apnea (adult) (pediatric) (principal); E66.9 Obesity, unspecified; Z68.35 Body mass index [BMI] 35.0-35.9, adult
CPT/HCPCS: 99212; 99213

== ENCOUNTER 2020-03-15 08:00 | Outpatient (CLI) | payer MEDICAID ==
[2020-03-15 18:28] LABS: BASOPHILS % (AUTO) 0.7 %; EOSINOPHILS # (AUTO) 0.1 10^3/uL (0.0-0.7); EOSINOPHILS % (AUTO) 1.8 %; HGB - HEMOGLOBIN 14.1 g/dL (12.0-16.0); LYMPHOCYTES # (AUTO) 1.8 10^3/uL (1.5-3.5); LYMPHOCYTES % (AUTO) 32.7 %; MEAN CORPUSCULAR HEMOGLOBIN 31.8 pg (27.0-31.0); MEAN CORPUSCULAR HGB CONC 33.6 g/dL (32.0-36.0); MEAN CORPUSCULAR VOLUME 94.8 fL (81.0-99.0); MEAN PLATELET VOLUME 9.2 fL (7.9-10.8); MONOCYTES # (AUTO) 0.5 10^3/uL (0.0-1.0); MONOCYTES % (AUTO) 8.2 %; NEUTROPHILS # (AUTO) 3.1 10^3/uL (1.5-6.6); NEUTROPHILS % (AUTO) 55.9 %; PLT - PLATELET COUNT 160 10^3/uL (130-450); RED BLOOD COUNT 4.43 10^6/uL (4.20-5.40); RED CELL DISTRIBUTION WIDTH 13.9 % (12.0-15.0); WHITE BLOOD COUNT 5.6 x10^3/uL (4.8-10.8)
[2020-03-15 18:54] LABS: ALBUMIN 4.4 g/dL (3.2-5.5); ALBUMIN/GLOBULIN RATIO 1.5 (1.0-2.2); ALKALINE PHOSPHATASE 80 IU/L (42-121); ALT ALANINE AMINOTRANSFERASE 29 IU/L (10-60); AST ASPARTATE AMINOTRANSFERASE 41 IU/L (10-42); BILIRUBIN,TOTAL 0.9 mg/dL (0.2-1.0); BUN - BLOOD UREA NITROGEN 16 mg/dL (6-20); CALCIUM 9.5 mg/dL (8.5-10.3); CARBON DIOXIDE - CO2 26 mmol/L (21-32); CHLORIDE 105 mmol/L (101-111); CHOL/HDL RATIO 4.3 (<4.4); CHOLESTEROL 180 mg/dL; CREATININE 0.6 mg/dL (0.4-1.0); GLUCOSE 130 mg/dL (70-100); HDL CHOLESTEROL 42 mg/dL; LDL CHOLESTEROL,CALCULATED 79 mg/dL; LDL/HDL RATIO 1.9 (<4.4); SODIUM 139 mmol/L (135-145); TOTAL PROTEIN 7.3 g/dL (6.7-8.2); VLDL CHOLESTEROL 59 mg/dL
[2020-03-15 19:32] LABS: CREATININE,URINE 102.7 mg/dL; MICROALBUMIN,URINE 110.3 mg/dL (0-300.0)
[2020-03-15 20:31] LABS: HEMOGLOBIN A1c% 6.1 % (4.27-6.07)
== END 2020-03-15 23:59 | disposition home or self-care (01) ==
LOC: LAB.WCP 08:00
PROVIDERS: ATTEND Family Medicine
DX: E11.9 Type 2 diabetes mellitus without complications (principal)
CPT/HCPCS: 36415; 80053; 80061; 82043; 82570; 83036; 83721; 84443; 85025

== ENCOUNTER 2021-04-11 12:49 | Outpatient (CLI) | payer MEDICAID ==
[2021-04-11 13:23] VITALS: BP 129/88
--- NOTE | 2021-04-11 13:23 | SLEEP CARE CONSULTATION ---
Information from patient questionnaire entered by Kalyani Gutierrez MA. I have reviewed and concur with the information entered by Kalyani Gutierrez MA. This document represents the service I personally performed and the decisions made by , Sariah Davis ARNP. History of Present Illness Service Date and Time: 04/11/2021 1249 Previous diagnosis: Severe, Obstructive Sleep Apnea-Hypopnea Syndrome AHI: 46.2 Reason for follow up: annual Equipment type: CPAP Equipment obtained from: [facility] (getting supplies as needed) Mask style: Nasal Mask brand: Respironics (Wisp) Backup mask available: No (will need old mask when replaced) Last cushion change: will soon, just received Prior sleep studies: Yes Year and Where: 2018 formerly [facility] Type of Sleep Study: Polysomnography HPI additional information: HERI HIDALGO was diagnosed to have severe, AHI 46.2, obstructive sleep apnea- hypopnea syndrome and returned today for CPAP therapy annual follow-up. Sleep Study - Results Type of Sleep Study: Polysomnography Prior sleep studies: Yes Year and Where: 2018 [facility] CPAP Compliance Data - Data Reviewed with Patient Average duration of nightly device use: 8 hours 24 minutes Compliance rate %: 100 Current pressure setting (cmH2O): 12-14 Humidity settin Heated hose settin Average residual AHI: 0.5 Average large leak: 13 seconds Subjective Patient concerns: denies: aerophagia, mask discomfort, air blowing in eyes, mask leak noise, condensation in mask/hose, nasal congestion, dry mouth, nose, throat, epistaxis, other Observed to snore while using device: No Current pressure setting perceived as: comfortable (could be more) On therapy, patient: reports: sleeping better, awakening more refreshed, being more awake and alert during the day, more rested overall. denies: drowsiness while driving Initial [place] Sleepiness Scale score: 12 (in 2018) Current [place] Sleepiness Scale score: 10 Allergies and Home Medications Home medication list reviewed: Yes (no changes) Review of Systems Review of systems same as previous: Yes (no changes) Physical Exam Vital signs obtained and entered by: Elaina Gutierrez CMA AANICOLE Blood Pressure: 129/88 (Left) Cuff size: wrist Heart Rate: 64 O2 Saturation: 96 (with mask) Height: 5 ft 2 in Weight: 192 lb (no boots) Body Mass Index: 35.1 BMI Classification: Obese Impression and Plan 1. Obstructive Sleep Apnea-Hypopnea Syndrome, severe, with good treatment compliance and good apnea control. On CPAP therapy, the patient has better sleep quality and is more rested overall. Patient is very satisfied with current CPAP therapy significant improvement of her sleep apnea. She states she will wake up gasping if she does not wear it. I informed the patient that [employer] has a recall on several devices like the patients machine. Patient was encouraged to register their device online with [employer] for the recall to see if their device is affected. If their device is affected they should start a claim. Patient denies any black particles seen in machine or hoses, any unusual odors coming from device. Patient has not experienced any physical symptoms such as upper airway irritation, headache, skin or eye irritation, asthma, nausea/vomiting, difficulty breathing or chest pain. If patient is not able to sleep due to waking up choking, gasping for air or other respiratory distress that they may decide to continue using it until it is either replaced or repaired. Patient voiced understanding and agreement with plan. Patient's apnea severity and rationale for treatment to reduce apnea, improve sleep quality and reduce cardiovascular and cerebrovascular events was reviewed. I also reviewed the benefit of consistent device use of CPAP for hypertension, diabetes and gastric reflux. 2. Obesity, unspecified. Patient has maintained her weight. Currently patients BMI is 35.1. Obesity increases the risk of apnea, CPAP pressure requirements and overall health risks especially cardiovascular and diabetes. Thus patient is advised to lose weight. Weight loss can be done with reducing portion size, reducing refined foods and balancing content with vegetables, fruit and whole grain foods. In addition, patient encouraged to get regular exercise. The patient's CPAP pressure range should accommodate some weight loss. Symptoms to report for additional pressure adjustment discussed. Patient was encouraged to lose weight for their overall health and to reduce apneas. * Continue auto CPAP pressure at 12-14 cmH2O * Notify me if snoring with mask or feeling that the pressure is too much or too little * Attempt to lose weight * Call this office if any problems using CPAP * Return for follow up in 1 year, or sooner if concerns arise Counseling Topics: Weight loss health impact Visit Type: In Office Time Spent with Patient (minutes): 31 Provider Statement: I spent 100% of the Face to Face Visit with the patient with greater than 50% spent counseling the patient and coordination of care.
== END 2021-04-11 12:50 | disposition home or self-care (01) ==
LOC: SC 12:49
PROVIDERS: ATTEND Nurse Practitioner Family
DX: G47.33 Obstructive sleep apnea (adult) (pediatric) (principal); E66.9 Obesity, unspecified; Z68.35 Body mass index [BMI] 35.0-35.9, adult
CPT/HCPCS: 99212; 99213

== ENCOUNTER 2022-05-29 12:53 | Outpatient (CLI) | payer MEDICAID ==
[2022-05-29 13:37] VITALS: BP 128/70
--- NOTE | 2022-05-29 13:37 | SLEEP CARE CONSULTATION ---
Information from patient questionnaire entered by Tiff Curtis. I have reviewed and concur with the information entered by Tiff Curtis. This document represents the service I personally performed and the decisions made by me, Sariah Davis ARNP. History of Present Illness Service Date and Time: 05/29/2022 1253 Previous diagnosis: Severe, Obstructive Sleep Apnea-Hypopnea Syndrome AHI: 46.2 Reason for follow up: annual (LAST SEEN 04/2021) Equipment type: CPAP (DREAMSTATION) Equipment obtained from: Other ([facility]; not getting supplies for months) Mask style: Nasal (over the nose) Mask brand: Respironics Backup mask available: No (will keep old mask when replaced) Last cushion change: 6 months Prior sleep studies: Yes Year and Where: 2018 [facility] Type of Sleep Study: Polysomnography HPI additional information: HERI HIDALGO was diagnosed to have severe, AHI 46.2, obstructive sleep apnea- hypopnea syndrome and returned today for CPAP therapy annual follow-up. Sleep Study - Results Type of Sleep Study: Polysomnography Prior sleep studies: Yes Year and Where: 2018 [facility] CPAP Compliance Data - Data Reviewed with Patient Average duration of nightly device use: 8 HRS 2 MIN 1 SEC Compliance rate %: 98.9 (11/28/21-05/26/22; 178/180 days used) Current pressure setting (cmH2O): 12-14 Average residual AHI: 0.5 Central apnea: 0.2 Obstructive apnea: 0.2 Hypopnea: 0.1 Average large leak: 17 secs Subjective Missed days of use due to: reports: other (did not sleep couple nights) Patient concerns: reports: condensation in mask/hose (occasionally), dry mouth, nose, throat. denies: aerophagia, mask discomfort, air blowing in eyes, mask leak noise, nasal congestion, epistaxis Observed to snore while using device: No Current pressure setting perceived as: comfortable On therapy, patient: reports: sleeping better, awakening more refreshed, being more awake and alert during the day, more rested overall. denies: drowsiness while driving Initial [place] Sleepiness Scale score: 12 (in 2018) Current [place] Sleepiness Scale score: 11 (05/29/2022) Allergies and Home Medications Drug allergies reviewed: Yes (penicillin) Home medication list reviewed: Yes (stopped meloxicam; still taking gabapentin) Review of Systems Review of systems same as previous: No (colonectomy d/t diverticulitis 04/10/22) Physical Exam Vital signs obtained and entered by: TIFF Christianson MA Blood Pressure: 128/70 (LEFT ARM) Cuff size: regular Heart Rate: 79 O2 Saturation: 98 Height: 5 ft 2 in Weight: 188 lb 3.2 oz Body Mass Index: 34.4 BMI Classification: Obese Impression and Plan 1. Obstructive Sleep Apnea-Hypopnea Syndrome, severe, with good treatment compliance and good apnea control. On CPAP therapy, the patient has better sleep quality and is more rested overall. Patient has significant improvement of their sleep apnea and are satisfied with current CPAP therapy. Patient has been having difficulty with getting her CPAP supplies over the last several months. Her DME supplier used to be [employer] that was bought out by [employer]. She has considered changing to a new DME company but states she will give them a chance to get her supplies before she changes. Patient also was informed about the recall on her [employer] Wisp nasal mask. She would like to try a different mask but stay with the nasal cushion. I showed her several options in the office today and she would like to try the [employer]Med AirFit N30i. I will add this to her update of supply prescription and her DME should call her for the fitting. She voiced understanding. Patient's apnea severity and rationale for tr eatment to reduce apnea, improve sleep quality and reduce cardiovascular and cerebrovascular events was reviewed. I also reviewed the benefit of consistent device use of CPAP for hypertension, diabetes and gastric reflux. 2. Obesity, unspecified. Currently patients BMI is 34.4. Obesity increases the risk of apnea, CPAP pressure requirements and overall health risks especially cardiovascular and diabetes. Thus patient is advised to lose weight. T * Continue auto CPAP pressure at 12-14 cmH2O3 * mask fitting for nasal mask; AirFit N30i * Update supplies * Notify me if snoring with mask or feeling that the pressure is too much or too little * Attempt to lose weight * Call this office if any problems using CPAP * Return for follow up in 1 year, or sooner if concerns arise Counseling Topics: Spare mask, Weight loss health impact Visit Type: In Office Time Spent with Patient (minutes): 26 Provider Statement: I spent 100% of the Face to Face Visit with the patient with greater than 50% spent counseling the patient and coordination of care.
== END 2022-05-29 12:54 | disposition home or self-care (01) ==
LOC: SC 12:53
PROVIDERS: ATTEND Nurse Practitioner Family
DX: G47.33 Obstructive sleep apnea (adult) (pediatric) (principal); E66.9 Obesity, unspecified; Z68.34 Body mass index [BMI] 34.0-34.9, adult
CPT/HCPCS: 99212; 99213

== ENCOUNTER 2023-05-29 08:12 | Outpatient (CLI) | payer BC, MEDICAID ==
--- NOTE | 2023-05-29 08:52 | Sleep Patient Instructions ---
Sleep Center Visit Summary - Patient Visit Information Reason for Visit: Annual Visit - Patient Instructions Additional Instructions: You will continue with CPAP therapy with pressure set at 12-14 cmH2O. A supply prescription will be updated with your DME. We encourage you to continue to try to lose weight. Please follow up with the sleep care office in 1 year. - Clinic Information Contact: [facility] [address] [place] [address] [email or web address] T: [phone]
--- NOTE | 2023-05-29 08:56 | SLEEP CARE CONSULTATION ---
Information from patient questionnaire entered by Tiff Curtis. I have reviewed and concur with the information entered by Tiff Curtis. This document represents the service I personally performed and the decisions made by , Sariah Davis ARNP. History of Present Illness Service Date and Time: 05/29/2023 0812 Previous diagnosis: Severe, Obstructive Sleep Apnea-Hypopnea Syndrome AHI: 46.2 Reason for follow up: annual (LAST SEEN ) Equipment type: CPAP (DREAMSTATION 2 NEED SD) Equipment obtained from: Other ([facility]) Mask style: Nasal (over the nose) Backup mask available: No Last cushion change: 5 months Prior sleep studies: Yes Year and Where: 2018 [facility] Type of Sleep Study: Polysomnography HPI additional information: HERI HIDALGO was diagnosed to have severe, AHI 46.2, obstructive sleep apnea- hypopnea syndrome and returned today for CPAP therapy annual follow-up. Sleep Study - Results Type of Sleep Study: Polysomnography Prior sleep studies: Yes Year and Where: 2018 [facility] CPAP Compliance Data - Data Reviewed with Patient Average duration of nightly device use: 8 hours 22 minutes Compliance rate %: 100 (90/90 days used) Current pressure setting (cmH2O): 12-14 Average residual AHI: 0.4 Central apnea: 0.1 Obstructive apnea: 0.2 Average large leak: 24 Subjective Patient concerns: denies: aerophagia, mask discomfort, air blowing in eyes, mask leak noise, condensation in mask/hose, nasal congestion, dry mouth, nose, throat, epistaxis Observed to snore while using device: No Current pressure setting perceived as: comfortable On therapy, patient: reports: sleeping better, awakening more refreshed, being more awake and alert during the day, more rested overall. denies: drowsiness while driving Initial [place] Sleepiness Scale score: 12 (in 2018) Current [place] Sleepiness Scale score: 8 (05/29/23) Allergies and Home Medications Known drug allergies: Yes (penicillins) Drug allergies reviewed: Yes Home medication list reviewed: Yes (no changes) Allergy and home medication list: Allergies Penicillins Allergy (Intermediate, Verified 05/28/23 08:53) Rash Home Medications Medication Instructions Recorded Confirmed Last Taken Type Cholecalciferol (Vitamin D3) 5,000 unit PO DAILY 08/20/13 05/29/23 03/10/18 History [Vitamin D-3] Meloxicam 15 mg PO DAILY 08/20/13 05/29/23 03/10/18 History Omeprazole [PriLOSEC] 20 mg PO DAILY 08/20/13 05/29/23 03/10/18 History traMADol [Ultram] 2 tab PO Q8HR PRN 08/20/13 05/29/23 02/24/18 History Methotrexate [Methotrexate Sodium] 10 mg PO BID 10/26/13 05/29/23 03/10/18 History Folic Acid 1 mg PO DAILY 09/30/16 05/29/23 03/10/18 History Ondansetron Odt [Zofran] 4 mg TL Q6H PRN #15 tablet 09/30/16 05/29/23 Unknown Rx azaTHIOprine [Azathioprine] 100 mg PO DAILY 09/30/16 05/29/23 03/10/18 History lisinopriL [Lisinopril] 10 mg PO DAILY 03/12/18 05/29/23 03/10/18 History Clindamycin HCl [Clindamycin 300MG 300 mg PO Q6H #28 capsule 03/13/18 05/29/23 Unknown Rx CAP] Hydrocodone/Acetaminophen 1 - 2 each PO Q6H PRN #10 tablet 11/04/18 05/29/23 Unknown Rx [Hydrocodon-Acetaminophen 5-325] Sulfamethox/Trimeth 800/160 1 each PO BID #14 tablet 11/04/18 05/29/23 Unknown Rx [Bactrim Ds 800/160] Polymyxin B/Trimeth Ophth Drop 1 drops RIGHTEYE Q3H 7 Days #1 03/31/19 05/29/23 Unknown Rx [Polytrim Ophth Drops] bottle metFORMIN [Glucophage] See Rx Instructions .ROUTE .COMPLEX 05/29/23 05/29/23 Unknown History Review of Systems Review of systems same as previous: No (COLECTOMY 04/2022) Physical Exam Vital signs obtained and entered by: TIFF Christianson MA Blood Pressure: 139/89 (LEFT ARM) Cuff size: regular Heart Rate: 63 O2 Saturation: 99 Height: 5 ft 2 in Weight: 186 lb 9.6 oz Body Mass Index: 34.1 BMI Classification: Obese Impression and Plan 1. Obstructive Sleep Apnea-Hypopnea Syndrome, severe, with good treatment compliance and good apnea control. On CPAP therapy, the patient has better sleep quality and is more rested overall. Patient has significant improvement of their sleep apnea and is satisfied with current CPAP therapy. Patient states she changed insurance and is going to be able to get her supplies cheaper online. She is requesting a copy of her supply prescription so that she can download up for the online company she has chosen. We will give her a copy of her prescription. Patient denies problems with oral dryness, nasal congestion, epistaxis, skin irritation or aerophagia. Patient's apnea severity and rationale for treatment to reduce apnea, improve sleep quality and reduce cardiovascular and cerebrovascular events was reviewed. I also reviewed the benefit of consistent device use of CPAP for hypertension, diabetes and gastric reflux. 2. Obesity, unspecified. Currently patients BMI is 34.1. Obesity increases the risk of apnea, CPAP pressure requirements and overall health risks especially cardiovascular and diabetes. Thus patient is advised to continue to try to lose weight. * Continue auto CPAP pressure at 12-14 cmH2O * Update supply prescription * Notify me if snoring with mask or feeling that the pressure is too much or too little * Attempt to lose weight * Call this office if any problems using CPAP * Return for follow up in 12 months, or sooner if concerns arise Counseling Topics: Spare mask, Weight loss health impact Prescriptions: Device supplies Follow up with Sleep Care in: 1 year Visit Type: In Office Time Spent with Patient (minutes): 21 Provider Statement: I spent 100% of the Face to Face Visit with the patient with greater than 50% spent counseling the patient and coordination of care.
[2023-05-29 09:05] VITALS: BP 139/89; O2SAT 99
== END 2023-05-29 08:13 | disposition home or self-care (01) ==
LOC: SC 08:12
PROVIDERS: ATTEND Nurse Practitioner Family
DX: G47.33 Obstructive sleep apnea (adult) (pediatric) (principal); E66.9 Obesity, unspecified; Z68.34 Body mass index [BMI] 34.0-34.9, adult
CPT/HCPCS: 99212; 99213